=== PATIENT | male | born 1970 | race American Indian/Alaskan Native ===

== ENCOUNTER 2022-05-17 11:41 | Outpatient (CLI) | payer OTHER, MEDICARE ==
[2022-05-17 12:51] LABS: Chol/HDL Ratio 2.56 %
== END 2022-05-17 11:42 | disposition home or self-care (01) ==
LOC: LABHHL 11:41
PROVIDERS: ATTEND Internal Medicine
DX: E78.5 Hyperlipidemia, unspecified (principal); E55.9 Vitamin D deficiency, unspecified; N31.9 Neuromuscular dysfunction of bladder, unspecified
CPT/HCPCS: 36415; 80061; 82306; 84443